=== PATIENT | male | born 1970 | race Caucasian/White ===

== ENCOUNTER → 2016-11-29 | Outpatient (CLI) | payer BC ==
[~2016-11-29] MED LIST: LAMO1TAB21 PO; LAMO200T38 PO; LEVE500T PO; PHEN64.8 PO; ZLF/50 PO
[2016-11-29 16:44] LABS: BASO % 0.7 %; BASO ABS # 0.05 K/uL (0-0.2); COMPLETE YES; EOS % 2.9 %; HEMATOCRIT 44.3 % (42-52); IG% 0.3 %; LYMPH % 29.5 %; LYMPH ABS # 2.15 K/uL (1.2-3.4); MEAN CORPUSCULAR HEMOGLOBIN 30.6 pg (25-34); MEAN CORPUSCULAR HGB CONC 33.6 g/dl (32-36); MEAN PLATELET VOLUME 11.1 fL (7.4-10.4); MONO % 8.5 %; NEUT % 58.1 %; PLATELET COUNT 234 K/uL (130-400); RED BLOOD COUNT 4.87 M/uL (4.7-6.1)
[2016-11-29 17:42] LABS: AST/SGOT 18 U/L (15-37); BLOOD UREA NITROGEN 10 mg/dl (7-18); BUN/CREATININE RATIO 11.4 (10-20); CALCIUM 9.1 mg/dl (8.5-10.1); CARBON DIOXIDE 27 mmol/L (21-32); CHLORIDE 104 mmol/L (98-107); CREATININE 0.84 mg/dl (0.60-1.40); GLUCOSE 82 mg/dl (70-99); POTASSIUM 3.9 mmol/L (3.5-5.1); SODIUM 139 mmol/L (136-145)
[2016-11-29 17:47] LABS: ALB/GLOB RATIO 1.4 (0.9-2); ALKALINE PHOSPHATASE 151 U/L (45-117); ALT/SGPT 25 U/L (12-78)
== END | disposition home or self-care (01) ==
LOC: C.LABBC 15:28
PROVIDERS: ATTEND Psychiatry & Neurology Neurology
DX: G80.9 Cerebral palsy, unspecified (principal); Z51.81 Encounter for therapeutic drug level monitoring

== ENCOUNTER 2017-01-15 12:36 | Emergency (ER) | payer BC ==
[~2017-01-15] VITALS: Ht 177.8 cm; Wt 122.4 kg
[2017-01-15 12:40] VITALS: TEMP 37.1; Ht 177.8 cm; Wt 122.4 kg
[2017-01-15] MEDS ORDERED: SODIUM CHLORIDE 0.9% 1000ML 500 ML IV STA (12:49)
[2017-01-15 13:11] LABS: HEMATOCRIT 44.4 % (42-52); MEAN CELL VOLUME 90.4 fL (80-100); MEAN CORPUSCULAR HEMOGLOBIN 30.5 pg (25-34); MEAN CORPUSCULAR HGB CONC 33.8 g/dl (32-36); MEAN PLATELET VOLUME 10.2 fL (7.4-10.4); PLATELET COUNT 200 K/uL (130-400); RED BLOOD COUNT 4.91 M/uL (4.7-6.1); WHITE BLOOD COUNT 6.93 K/uL (4.8-10.8)
--- NOTE | 2017-01-15 13:15 | DIAGNOSTIC IMAGING REPORT ---
CHEST ONE VIEW PORTABLE HISTORY:46 yearsMaleCHEST PAIN COMPARISON: Chest radiograph 08/28/2015. TECHNIQUE: Portable upright AP view of the chest. FINDINGS: Cardiac silhouette is again upper limits of normal. There is no pneumothorax, pleural effusion, focal airspace consolidation or overt pulmonary edema. The bones are grossly intact. IMPRESSION: No acute cardiopulmonary process. The above report was generated using voice recognition software. It may contain grammatical, syntax or spelling errors. Electronically signed by: Burt Rocha M.D. 01/15/2017 1:13 PM Dictated Date/Time: 01/15/2017 1:13 PM
[2017-01-15 13:30] LABS: BLOOD UREA NITROGEN 9 mg/dl (7-18); BUN/CREATININE RATIO 9.2 (10-20); CALCIUM 9.3 mg/dl (8.5-10.1); CARBON DIOXIDE 26 mmol/L (21-32); CHLORIDE 104 mmol/L (98-107); CREATININE 0.93 mg/dl (0.60-1.40); GLUCOSE 116 mg/dl (70-99); POTASSIUM 3.8 mmol/L (3.5-5.1); SODIUM 138 mmol/L (136-145)
[2017-01-15 14:40] VITALS: BP 126/80; PULSE 90; O2SAT 97
--- NOTE | 2017-01-15 18:46 | EMERGENCY ROOM VISIT NOTE ---
History Report prepared by Belle: Stas Barry Under the Supervision of: Dr. Joey Jones M.D. First contact with patient: 12:44 Chief Complaint: CARDIAC ASSESSMENT Stated Complaint: CHEST PAIN, ARM PAIN Nursing Triage Summary: triage note: pt reports right sided rib pain since yesterday. pt reports today some chest pain with ambulating and movement. History of Present Illness The patient is a 46 year old male who presents to the Emergency Room with complaints of persistent chest pain starting yesterday. The patient started having right sided rib pain yesterday. Today, the patient started having chest pain across his chest. He is now having left sided chest pain. He has worsening pain with activities such as deep breathing, opening the door, twisting and turning, and walking. He denies any worsening pain with sitting up. As per father, the patient was recently on vacation and may have strained his chest wall when he went back to work--he was at work today. He did not have any recent long trips. He denies any history of heart disease or blood clots. He has cerebral palsy on the right side. He does not have any other medical problems. He denies cough, shortness of breath, or any other complaints. Source of History: patient Onset: yesterday Position: chest Timing: other (persistent) Modifying Factors (Worsening): breathing (deep), other (opening the door, twisting and turning, and walking) Associated Symptoms: No cough, No SOB Review of Systems See HPI for pertinent positives & negatives. A total of 10 systems reviewed and were otherwise negative. Past Medical & Surgical Medical Problems: (1) Cerebral palsy (2) Dehydration (3) Nausea, vomiting, and diarrhea (4) Seizure disorder (5) Seizure disorder (6) Seizure disorder Family History FHx: gallbladder disease Hypertension Social History Smoking Status: Never Smoker Drug Use: none Marital Status: single Housing Status: lives with family Occupation Status: employed Current/Historical Medications Scheduled Lamotrigine (Lamictal), 400 MG PO BID Lamotrigine (Lamotrigine), 100 MG PO BID Levetiractam (Levetiracetam), 500 MG PO BID Phenobarbital (Phenobarbital), 129.6 MG PO AMHS Allergies Coded Allergies: No Known Allergies (Unverified , NONE, 01/15/17) Physical Exam Vital Signs Date Time Temp Pulse Resp B/P (MAP) Pulse Ox O2 Delivery O2 Flow Rate FiO2 01/15/17 14:40 90 18 126/80 97 01/15/17 13:07 103 01/15/17 12:40 37.1 55 18 134/82 99 Room Air Physical Exam GENERAL: Patient is in no acute distress. HEENT: No acute trauma, normocephalic atraumatic, mucous membranes moist, no nasal congestion, no scleral icterus. NECK: No stridor, no adenopathy, no meningismus, trachea is midline. CHEST: Nontender chest wall although pain worsens with chest wall twisting. LUNGS: Clear to auscultation bilaterally, no wheeze, no rhonchi, breath sounds equal. HEART: Without murmurs gallops or rubs, regular rate and rhythm. ABDOMEN: Soft, nontender, bowel sounds positive, no hernias, no peritonitis. EXTREMITIES: No cyanosis, full range of motion of all the joints without pain or difficulty, no signs for acute trauma. Mild bilateral pedal edema. NEUROLOGIC: He has evidence for cerebral palsy in the right upper extremity and right lower extremity. Awake, alert, and oriented x3. SKIN: No rash, no jaundice, no diaphoresis. Medical Decision & Procedures ER Provider Diagnostic Interpretation: X-ray results as stated below per interpretation by me and the radiologist: CHEST ONE VIEW PORTABLE HISTORY:46 yearsMaleCHEST PAIN COMPARISON: Chest radiograph 08/28/2015. TECHNIQUE: Portable upright AP view of the chest. FINDINGS: Cardiac silhouette is again upper limits of normal. There is no pneumothorax, pleural effusion, focal airspace consolidation or overt pulmonary edema. The bones are grossly intact. IMPRESSION: No acute cardiopulmonary process. The above report was generated using voice recognition software. It may contain grammatical, syntax or spelling errors. Electronically signed by: Burt Rocha M.D. 01/15/2017 1:13 PM Dictated Date/Time: 01/15/2017 1:13 PM Laboratory Results 01/15/17 12:57 01/15/17 12:57 Test 01/15/17 12:57 Red Blood Count 4.91 M/uL (4.7-6.1) Mean Corpuscular Volume 90.4 fL (80-100) Mean Corpuscular Hemoglobin 30.5 pg (25-34) Mean Corpuscular Hemoglobin Concent 33.8 g/dl (32-36) RDW Standard Deviation 41.3 fL (36.4-46.3) RDW Coefficient of Variation 12.5 % (11.5-14.5) Mean Platelet Volume 10.2 fL (7.4-10.4) D-Dimer < 190 ug/L FEU (0-500) Anion Gap 8.0 mmol/L (3-11) Est Creatinine Clear Calc Drug Dose 133.0 ml/min Estimated GFR () 115.3 Estimated GFR (Non- 99.5 BUN/Creatinine Ratio 9.2 (10-20) Calcium Level 9.3 mg/dl (8.5-10.1) Troponin I < 0.015 ng/ml (0-0.045) Laboratory results reviewed by me. Medications Administered Medications (Trade) Dose Ordered Sig/Eladia Route Start Time Stop Time Status Last Admin Dose Admin Sodium Chloride 500 ml @ 999 mls/hr Q31M STAT IV 01/15/17 12:49 01/15/17 13:19 DC 01/15/17 13:18 999 MLS/HR ECG Indication: chest pain Rate (beats per minute): 101 Rhythm: sinus tachycardia Findings: no acute ischemic change, no ectopy ED Course 1244: The patient was evaluated in room C02B. A complete history and physical exam was performed. 1249: Sodium Chloride 500 ml @ 999 mls/hr IV 1407: Reevaluated the patient. Discussed results and discharge instructions: He verbalized understanding and agreement. The patient is ready for discharge. Medical Decision Differential diagnosis includes but is not limited to Pulmonary embolus, musculoskeletal pain, pneumothorax, pneumonia, nerve impingement, [place]. There is no leukocytosis or concerning anemia. No significant electrolyte abnormality or kidney failure. Chest x-ray does not show pneumonia, mediastinal widening or pneumothorax. EKG shows a mild sinus tachycardia with a rate of 101, no acute ischemia. Cardiac enzyme testing times one is not consistent with acute cardiac injury. D-dimer testing was negative. With a negative d-dimer and my low suspicion for PE, I will stop the workup for this diagnosis. The patient did receive IV saline, he has not required anything for pain. His chest pain appears musculoskeletal. His cardiac workup is unrevealing. He can reproduce his pain with certain movements. The patient is being discharged with [id number] pain medications, rest and heat. He can return if worsening. He was reassured. Impression Primary Impression: Precordial chest pain Scribe Attestation The scribe's documentation has been prepared under my direction and personally reviewed by me in its entirety. I confirm that the note above accurately reflects all work, treatment, procedures, and medical decision making performed by me. Departure Information Dispostion Home / Self-Care Referrals No Doctor Assigned Forms IMPORTANT VISIT INFORMATION Patient Instructions My [facility] Additional Instructions motrin 600 mg 3x per day for 3 days rest heat to the chest wall may help return if worsening imaging and lab testing were ok today off work today and the next 2 days
== END 2017-01-15 14:41 | disposition home or self-care (01) ==
LOC: C.EDB 12:37 → C.EDC 14:41
DX: R07.2 Precordial pain (principal); G80.9 Cerebral palsy, unspecified; M79.603 Pain in arm, unspecified

== ENCOUNTER → 2017-11-24 | Outpatient (CLI) | payer OTHER ==
[~2017-11-24] MED LIST changes: +LAMO200T35 PO; -LAMO200T38 PO; -ZLF/50 PO
[2017-11-24 10:50] LABS: BLOOD UREA NITROGEN 9 mg/dl (7-18); CARBON DIOXIDE 28 mmol/L (21-32); CHOLESTEROL 142 mg/dl (0-200); CREATININE 0.92 mg/dl (0.60-1.40); GLUCOSE 114 mg/dl (70-99); LDL CHOLESTEROL CALCULATED 81 mg/dl; POTASSIUM 3.9 mmol/L (3.5-5.1); SODIUM 138 mmol/L (136-145)
== END | disposition home or self-care (01) ==
LOC: C.LABBC 08:24
PROVIDERS: ATTEND Family Medicine
DX: Z00.00 Encounter for general adult medical examination without abnormal findings (principal)

== ENCOUNTER → 2018-01-29 | Outpatient (CLI) | payer OTHER ==
[2018-01-29 17:47] LABS: ALBUMIN 4.3 gm/dl (3.4-5.0); ALKALINE PHOSPHATASE 141 U/L (45-117); ALT/SGPT 22 U/L (12-78); AST/SGOT 18 U/L (15-37); BLOOD UREA NITROGEN 8 mg/dl (7-18); CALCIUM 9.4 mg/dl (8.5-10.1); CARBON DIOXIDE 27 mmol/L (21-32); CREATININE 0.95 mg/dl (0.60-1.40); GLUCOSE 86 mg/dl (70-99); POTASSIUM 3.8 mmol/L (3.5-5.1); SODIUM 136 mmol/L (136-145); TOTAL PROTEIN 7.3 gm/dl (6.4-8.2)
[2018-02-04 23:38] LABS: KEPPRA (LEVETIRACETAM) *15142X 6.4 mcg/mL; LAMICTAL (LAMOTRIGINE)**22060 7.4 mcg/mL (4.0-18.0)
== END | disposition home or self-care (01) ==
LOC: C.LAB 16:53
PROVIDERS: ATTEND Psychiatry & Neurology Neurology
DX: G40.909 Epilepsy, unspecified, not intractable, without status epilepticus (principal); R03.0 Elevated blood-pressure reading, without diagnosis of hypertension